=== PATIENT | female | born 1940 | race Hispanic/Latino ===

== ENCOUNTER → 2019-07-30 | Outpatient (CLI) | payer MEDICARE ==
[~2019-07-30] MED LIST: ACET-66 PO; AMLO5TAB9 PO; BUDE10.2 IH; CHOL50004 PO; CLON0.1T PO; CLOP75TA32 PO; CYAN200018 PO; DEXL60CA3 PO; LEVO75TA6 PO; LOSA100T58 PO; MONT10TA26 PO; ROSU10TA22 PO; VALS80TA30 PO
== END | disposition home or self-care (01) ==
LOC: SHCH 09:42
PROVIDERS: ATTEND Internal Medicine Cardiovascular Disease
DX: I10 Essential (primary) hypertension (principal); I20.0 Unstable angina
CPT/HCPCS: 78452; 93017; 96374; A9500 ×2